=== PATIENT | female | born 1970 | race Caucasian/White ===

== ENCOUNTER 2020-04-23 00:14 | Emergency (ER) | payer MEDICARE, SELFPAY ==
[2020-04-23 00:20] VITALS: BP 111/67; PULSE 82; RESP 16; TEMP 36.6; O2SAT 99
--- NOTE | 2020-04-23 00:29 | ED.DENTAL ---
HPI - Dental/Oral General Chief complaint: Dental/Oral Stated complaint: pain in mouth Time Seen by Provider: 04/23/20 00:27 History of Present Illness HPI Narrative: She has extensive tooth decay. She has had intermittent dental pain for a long time. Over the past few days she has had persistent pain in the left lower jaw. Since yesterday she has had significant swelling in this location. She has a dentist appointment on Sunday. Related Data Allergies Allergy/AdvReac Type Severity Reaction Status Date / Time Sour Cream Allergy Severe Difficulty Uncoded 06/19/19 07:17 breathing and throat swelling Review of Systems Review of Systems: All systems reviewed & are unremarkable except as noted in HPI and below Constitutional: Constitutional: Denies chills and Denies fever(s) ENT: Denies sore throat Cardiovascular: Cardiovascular: Denies chest pain Respiratory: Respiratory: Denies dyspnea [facility] Social History Social History (Updated 04/23/20 @ 03:42 by Stephen Dangelo MD) Substance use: former Exam Const: General: no acute distress and alert Orientation/consciousness: patient oriented x3 HENMT: Other: Extensive tooth decay. Swelling with central fluctuance at left lower incisor. Eyes: Pupils: Equal, round and reactive pupils present Resp: Effort & Inspection: normal respiratory effort Auscultation: clear to auscultation bilaterally Cardio: Rate: regular rate Rhythm: regular rhythm Skin: General skin exam: normal color Neuro: General: patient oriented x3 Speech: normal speech Course Vital Signs Vital signs: Vital Signs Temperature 36.6 C 04/23/20 00:20 Pulse Rate 82 04/23/20 00:20 Respiratory Rate 16 04/23/20 00:20 Blood Pressure 111/67 04/23/20 00:20 Pulse Oximetry 99 04/23/20 00:20 Temperature 36.7 C 04/23/20 01:26 Pulse Rate 80 04/23/20 01:26 Respiratory Rate 16 04/23/20 01:26 Blood Pressure 108/64 04/23/20 01:26 Pulse Oximetry 100 04/23/20 01:26 Procedures Abscess I/D oral: Side (if applicable): left Local Anesthetic: lidocaine 1% and with epi Amount of anesthesia used (mL): 3 Technique: needle aspiration Amount of fluid expressed (mL): 3 I&D Results: Pus MDM - Dental/Oral MDM Narrative Medical decision making narrative: Abscess drained. Will start penicillin and she can see the dentist as planned. Discharge Plan Discharge Clinical Impression: Dental abscess Patient Disposition: Home, Self-Care Condition: Stable Instructions: Dental Abscess (ED) Prescriptions: New penicillin V potassium 500 mg tablet 500 mg PO Q12H Qty: 20 RF: 0 Follow-up/Referrals: Darwin,Real Ballard MD [Primary Care Provider] - Stand Alone Forms: Work/School Release IP Discharge Date/Time: 04/23/20 01:27
[2020-04-23] MEDS: PENICILLIN V POTASSIUM 250 MG TABLET 500 MG PO (01:03)
[2020-04-23 01:26] VITALS: BP 108/64; PULSE 80; RESP 16; TEMP 36.7; O2SAT 100
== END 2020-04-23 01:27 | disposition home or self-care (01) ==
PROVIDERS: Emergency Provider Emergency Medicine; PCP Family Medicine
DX: K04.7 Periapical abscess without sinus (principal)
CPT/HCPCS: 41800; 99283; A9270